=== PATIENT | male | born 1965 | race Caucasian/White ===

== ENCOUNTER 2019-01-31 11:38 | Emergency (ER) | payer MEDICAID ==
[2019-01-31] MEDS ORDERED: Aspirin 81mg Chewable Tab PO STA (11:43)
[2019-01-31] MEDS ORDERED: Aspirin 81mg Chewable Tab ONE (11:46)
[2019-01-31] MEDS ORDERED: Heparin Sod 1,000Units/ML 1,000 UNITS/ML VIAL IVP ONE (11:53)
[2019-01-31] MEDS ORDERED: NITROGLYCERIN OINT 2% 1 INCH PACKET TP STA (11:54)
[2019-01-31] MEDS ORDERED: Morphine Sulfate 2 mg/mL 1mL Syr IV STA (11:54)
[2019-01-31 11:56] LABS: % BASOPHILS 0.3 % (0.0-2.0); % EOSINOPHILS 0.5 % (0.0-5.0); % MONOCYTES 4.8 % (2.0-10.0); % NEUTROPHILS 83.4 % (40.0-80.0); EOSINOPHILE ABSOLUTE 0.1 Th/cmm (0.1-0.4); HEMATOCRIT 46.2 % (41.0-60); HEMOGLOBIN 15.7 gm/dL (12-16); LYMPHOCYTE ABSOLUTE 1.5 Th/cmm (1.5-3.0); MEAN CELL VOLUME 86.5 fl (80-99); MEAN CORPUSCULAR HEMOGLOBIN 29.4 pg (26.0-30.0); MONOCYTE ABSOLUTE 0.7 Th/cmm (0.3-1.0); NEUTROPHILE ABSOLUTE 11.3 Th/cmm (1.8-8.0); PLATELET COUNT 261 Th/cmm (150-400); RED BLOOD COUNT 5.34 Mil/cmm (4.30-5.70); RED CELL DISTRIBUTION WIDTH 11.8 % (11.5-20.0); WHITE BLOOD COUNT 13.6 Th/cmm (4.8-10.8)
[2019-01-31] MEDS ORDERED: NITROGLYCERIN OINT 2% 1 INCH PACKET TP ONE (11:57)
[2019-01-31] MEDS ORDERED: Morphine Sulfate 2 mg/mL 1mL Syr ONE (11:58)
[2019-01-31] MEDS ORDERED: Heparin Sod 5,000Units/ML 5,000 UNITS/ML VIAL ONE (12:00)
--- NOTE | 2019-01-31 12:02 | ED Physician Chart ---
ED Chief Complaint/HPI - Patient Information Date Seen:: 01/31/19 Time Seen:: 11:45 Chief Complaint:: Chest Pain History of Present Illness:: onset x 6 hours of heavy pressure chest pain and dyspnea; pt denies trauma, H/As , neck pain, Abd. pain, A/N/V/d/c, fever, chills, cough, or urinary s/s Allergies:: Allergies Allergy/AdvReac Type Severity Reaction Status Date / Time No Known Allergies Allergy Verified 01/31/19 11:44 Vitals:: Vital Signs - 8 hr 01/31/19 11:56 HR 97 BP 130/73 Historian:: Patient Review:: Nurse's Note Reviewed, Old Chart Reviewed ED Review of Systems - Review of Systems General/Constitutional: No fever, No chills, No weight loss, No weakness, No diaphoresis, No edema, No loss of appetite Skin: No skin lesions, No rash, No bruising Head: No headache, No light-headedness Eyes: No loss of vision, No pain, No diplopia ENT: No earache, No nasal drainage, No sore throat, No tinnitus Neck: No neck pain, No swelling, No thyromegaly, No stiffness, No mass noted Cardio Vascular: No chest pain, No palpitations, No PND, No orthopnea, No edema Pulmonary: No SOB, No cough, No sputum, No wheezing GI: No nausea, No vomiting, No diarrhea, No pain, No melena, No hematochezia, No constipation, No hematemesis G/U: No dysuria, No frequency, No hematuria, No nacturia Musculoskeletal: No bone or joint pain, No back pain, No muscle pain Endocrine: No polyuria, No polydipsia Psychiatric: No prior psych history, No depression, No anxiety, No suicidal ideation, No homicidal ideation, No auditory hallucination, No visual hallucination Hematopoietic: No bruising, No lymphadenopathy Allergic/Immuno: No urticaria, No angioedema Neurological: No syncope, No focal symptoms, No weakness, No paresthesia, No headache, No seizure, No dizziness, No confusion, No vertigo ED Past Medical History - Past Medical History Obtainable: Yes Past Medical History: HTN, DM, Dyslipidemia Family History: Diabetes Melitus, HTN Social History: Non Smoker, No Alcohol, No Drug Use, Surgical History: None Psychiatricy History: None Medication: Reviewed Family Medical History - Family Member Mother History Unknown: Yes ED Physical Exam - Physical Examination General/Constitutional: Awake, Well-developed, well-nourished, Alert, No distress, GCS 15, Non-toxic appearing, Ambulatory Head: Atraumatic Eyes: Lids, conjuctiva normal, PERRL, EOMI Skin: Nl inspection, No rash, No skin lesions, No ecchymosis, Well hydrated, No lymphadenopathy ENMT: External ears, nose nl, TM canals nl, Nasal exam nl, Lips, teeth, gums nl , Oropharynx nl, Tonsils nl Neck: Nontender, Full ROM w/o pain, No JVD, No nuchal rigidity, No bruit, No mass, No stridor Respiratory: Nl effort/Exclusion, Clear to Auscultation, No Wheeze/Rhonchi/Rales Cardio Vascular: RRR, No murmur, gallop, rubs, NL S1 S2, Carotid/Femoral/Distal pulses equal bilaterally GI: No tenderness/rebounding/guarding, No organomegaly, No hernia, Normal BS's, Nondistended, No mass/bruits, No McBurney tenderness, Rectum exam nl : No CVA tenderness Extremities: No tenderness or effusion, Full ROM, normal strength in all extremities, No edema, Normal digits & nails Neuro/Psych: Alert/oriented, DTR's symmetric, Normal sensory exam, Normal motor strength, Judgement/insight normal, Mood normal, Normal gait, No focal deficits Misc: Normal back, No paraspinal tenderness ED Labs/Radiology/EKG Results - Lab Results Results: Laboratory Tests 01/31/19 11:54 POC Glucose 368 H Comments:: Reviewed - Radiology Results Comments:: CXR: Cardiomegaly; CHF - EKG Interpretations EKG Time:: 11:46 Rate & Rhythm: 96; NSR Comments:: ST-T elevation in precordial leads cw Acute Anteroseptal RI ED Septic Shock - . Is Septic Shock (SBP<90, OR Lactate>4 mmol\L) present?: No - <6hrs of presentation: Vital Signs: Vital Signs - 8 hr 01/31/19 11:56 HR 97 BP 130/73 ED Reassessment (Disposition) - Reassessment Reassessment Condition:: Improved - Diagnosis Diagnosis:: Acute Chest Pain; Acute Dyspnea; Acute Myocardial Infarction; CHF; DM; HTN; HLD - Aftercare/Follow up Instructions Aftercare/Follow-Up Instructions:: Counseled pt regarding lab results/diagnosis & need follow up, Counseled pt & family regarding lab results/diagnosis & need follow up - Patient Disposition Discharge/Transfer:: [facility] Accepting Physician:: Dr. Valle Time Called:: 1200 Time Responded:: 12:00 Admitted to:: ICU Spoke to:: Dr. Valle Admitting Medical Physician:: Dr. Valle Condition at Disposition:: Stable, Improved
[2019-01-31] MEDS ORDERED: Aspirin 325 mg EC PO ONE (12:03)
[2019-01-31 12:12] LABS: INR 0.87 (0.5-1.4)
[2019-01-31] MEDS ORDERED: Heparin Sod 5,000Units/ML 5,000 UNITS/ML VIAL IVP STA (12:12)
[2019-01-31 12:19] LABS: ALB/GLOB RATIO 1.5 (1.0-1.8); ALBUMIN 3.8 gm/dL (4.2-5.5); ALKALINE PHOSPHATASE 129 U/L (34-104); ANION GAP 13.5 (7.0-16.0); BILIRUBIN,TOTAL 1.1 mg/dL (0.3-1.0); BUN - UREA NITROGEN 21 mg/dL (7-25); CALCIUM SERUM 9.1 mg/dL (8.6-10.3); CARBON DIOXIDE 23.2 mEq/L (21.0-31.0); CHLORIDE 97 mEq/L (98-107); CHOLESTEROL 184 mg/dL (<200); CREATININE - SERUM 0.7 mg/dL (0.7-1.3); CREATININE KINASE 2762 U/L (30-223); GFR AFRICAN-AMERICAN > 60.0 ml/min (>90); GFR NON AFRICAN-AMERICAN > 60.0 ml/min; GLUCOSE 403 mg/dL (70-105); HDL -HIGH DENSITY LIPOPROTEIN 32 mg/dL (23-92); POTASSIUM SERUM 3.7 mEq/L (3.5-5.1); SGOT 243 U/L (13-39); SGPT/ALT 53 U/L (7-52); SODIUM SERUM 130 mEq/L (136-145); TOTAL PROTEIN,SERUM 6.4 gm/dL (6.0-8.3); TRIGLYCERIDES 217 mg/dL (<150)
--- NOTE | 2019-01-31 13:24 | Diagnostic Imaging Report ---
Portable chest x-ray HISTORY: Pain The heart appears somewhat enlarged. No focal pulmonary processes no hilar or mediastinal abnormalities. IMPRESSION: 1. No acute pulmonary processes 2. Cardiomegaly
[2019-01-31 13:32] LABS: DDIMER QUANT 141 ng/mL (100-400)
[2019-02-01 06:06] LABS: A1C 9.4 % (4.8-5.6)
== END 2019-01-31 12:10 | disposition short-term general hospital (02) ==
LOC: ER 11:38
DX: I11.0 Hypertensive heart disease with heart failure (principal); I50.9 Heart failure, unspecified; I21.9 Acute myocardial infarction, unspecified; E78.5 Hyperlipidemia, unspecified; E11.9 Type 2 diabetes mellitus without complications; R06.00 Dyspnea, unspecified
CPT/HCPCS: 99285; 96374; 96375; 93005; 71045; 84484; 83880; 36415; 36416; 85379; 82948; 85025; 85610; 82550; 82553; 83036; 80053; 80061; J2270; J1644